=== PATIENT | female | born 1995 | race Asian ===

== ENCOUNTER 2024-05-28 14:20 | Emergency (ER) | payer OTHER, BC ==
[2024-05-28 14:36] VITALS: BP 116/82; PULSE 57; RESP 16; TEMP 98; BMI 23.0
== END 2024-05-28 16:17 | disposition home or self-care (01) ==
LOC: FER 14:20
DX: S06.0X0A Concussion without loss of consciousness, initial encounter (principal); V89.2XXA Person injured in unspecified motor-vehicle accident, traffic, initial encounter
CPT/HCPCS: 71046-TC-FY; 84703; 99284-25